=== PATIENT | female | born 2000 | race Caucasian/White ===

== ENCOUNTER 2019-06-20 08:57 | Emergency (ER) | payer OTHER, SELFPAY ==
[2019-06-20 09:07] VITALS: BP 119/76; PULSE 88; RESP 18; TEMP 36.3; O2SAT 100
--- NOTE | 2019-06-20 09:49 | ED.GENADULT ---
HPI - General Adult General Chief complaint: Urogenital-Female Stated complaint: UTI Time Seen by Provider: 06/20/19 09:45 Source: patient and RN notes reviewed Mode of arrival: ambulatory Limitations: no limitations History of Present Illness HPI narrative: 18-year-old female presents with urinary complaints for 1 day. Dysuria consist of frequency and urgency.? No treatment.? Denies fever or chills. No significant pelvic pain. No vaginal discharge.? No concerns for STDs. Exacerbating factors urinating.? Denies hematuria or vaginal bleeding. Denies douching. Denies being , LMP 1-2 weeks ago and on control. No flank pain. Denies nausea, vomiting, and abdominal pain.? Tolerating liquids well.? Remains active. Some parts of this dictation were generated by voice recognition software and may contain typographical and/or grammatical inaccuracies. Related Data Home Medications Medication Instructions Recorded Confirmed fluticasone propionate 50 1 - 2 spray NASAL DAILY ml 05/28/19 06/20/19 mcg/actuation nasal spray,suspension norgestrel 0.3 mg-ethinyl 1 tablet PO DAILY 05/28/19 06/20/19 estradiol 30 mcg tablet cetirizine 10 mg tablet 10 mg PO DAILY 05/29/19 06/20/19 Allergies Allergy/AdvReac Type Severity Reaction Status Date / Time No Known Allergies Allergy Verified 06/20/19 09:55 Review of Systems Review of Systems: Narrative: CONSTITUTIONAL: Denies fever, chills, sweats. EYES: Denies visual changes, redness, discharge. ENT: Denies rhinorrhea, congestion, sore throat, otalgia. CARDIOVASCULAR: Denies chest pain, palpitations, edema. RESPIRATORY: Denies dyspnea, wheezing, cough. GASTROINTESTINAL: Denies abdominal pain, nausea, vomiting, diarrhea. GENITOURINARY: Complains of dysuria (frequency and urgency). Denies hematuria, abnormal discharge. SKIN: Denies rash or itching. MUSCULOSKELETAL: Denies acute back pain, joint pain, or myalgia. NEUROLOGIC: Denies numbness or focal weakness. PSYCHIATRIC: Denies anxiety or depression. All systems reviewed & are unremarkable except as noted in HPI and below. [facility] Past Medical History Medical History (Updated 06/21/19 @ 00:00 by Background Daemon) Rheumatic fever with heart involvement Surgical History Surgical History (Updated 06/20/19 @ 10:12 by SINDY Gonzales) No significant past surgical history Family History Family History Mother Patient's mother is in good health Father Patient's father is in good health Social History Social History (Updated 06/20/19 @ 10:12 by SINDY Gonzales) Smoking status: Never smoker Second hand tobacco smoke exposure: No Alcohol intake: current Alcohol use details: Occasional Substance use: never Living arrangements: with family Occupation/Education: student Gender identity (if verbalized by the patient): Female Comments At time of signature, agree with nurse past medical, surgical, social, and family history.? There is no relevant family history pertinent to the presenting complaint. Exam Narrative: Exam Narrative: GENERAL: This is a well-nourished, well-developed patient, in no apparent distress.? Talks in full sentences and ambulates with steady gait without dyspnea. HEAD: normocephalic, atraumatic. EYES: PERRL. Sclera clear/white. Vision is grossly intact. CARDIOVASCULAR: Regular rate and rhythm without murmurs, gallops, or rubs. RESPIRATORY: Clear to auscultation. Breath sounds equal bilaterally. No wheezes, rales, or rhonchi.? GASTROINTESTINAL: Abdomen soft, no significant abdominal tenderness, nondistended. Bowel sounds are active. No hepato-splenomegaly, or palpable masses. No guarding. SKIN: warm, intact with no suspicious lesions or rash, No Purpura or Ecchymosis, good texture and turgor. NEURO: awake, alert, and oriented to person, place and time. There were no obvious focal neurologic abnormalit
== END 2019-06-20 10:02 | disposition home or self-care (01) ==
PROVIDERS: Emergency Provider Nurse Practitioner Family; PCP Emergency Medicine
DX: R30.0 Dysuria (principal)
CPT/HCPCS: 81003; 99213; G0463

== ENCOUNTER 2019-09-14 10:52 | Outpatient (CLI) | payer OTHER, SELFPAY ==
[2019-09-14 11:40] LABS: Basophils Percent Auto 0.7 % (0.2-1.2); Eosinophils Absolute Auto 0.1 K/mm3 (0-0.3); Eosinophils Percent Auto 2.1 % (0-4.4); Hematocrit 39.9 % (37.0-47.0); Immature Granulocyte Absolute 0.01 K/mm3 (0.00-0.031); Immature Granulocyte Percent A 0.2 % (0-0.5); Lymphocytes Percent Auto 37.7 % (18.3-44.2); Mean Corpuscular HGB Conc 32.6 g/dl (32-36); Mean Corpuscular Hemoglobin 30.2 pg (26-34); Mean Corpuscular Volume 92.8 fl (80-100); Mean Platelet Volume 9.4 fl (7.4-10.4); Monocytes Absolute Auto 0.4 K/mm3 (0.1-0.6); Monocytes Percent Auto 5.7 % (2.6-8.5); Neutrophils Absolute Auto 3.3 K/mm3 (1.3-6.7); Neutrophils Percent Auto 53.6 % (45.5-73.1); Platelet Count Result 261 k/mm3 (150-375); Red Cell Distribution Width 11.8 % (11.5-14.5); White Blood Count 6.1 K/mm3 (4.5-10.0)
[2019-09-14 11:55] LABS: Alanine Aminotransferase 27 U/L (4-35); Albumin Level 4.4 g/dL (3.5-5.1); Alkaline Phosphatase 58 U/L (38-126); Aspartate Amino Transferase 29 U/L (14-36); Bilirubin,Total 0.4 mg/dL (0.2-1.3); Blood Urea Nitrogen 9 mg/dL (7-17); Calcium 9.3 mg/dL (8.4-10.2); Carbon Dioxide 23 mmol/L (22-30); Chloride 106 mmol/L (98-107); Cholesterol 195 mg/dL (0-200); Estimated Glomerular Filt Rate > 60; Glucose 85 mg/dL (65-105); HDL Direct 71 mg/dL; Potassium 4.1 mmol/L (3.4-5.0); Sodium 137 mmol/L (137-145); Triglycerides 141 mg/dL (<150)
[2019-09-14 12:11] LABS: LDL Cholesterol Direct 99 mg/dL
== END 2019-09-14 10:53 | disposition home or self-care (01) ==
PROVIDERS: Referring Provider Physician Assistant; Visit Provider Emergency Medicine
DX: R53.83 Other fatigue (principal); R58 Hemorrhage, not elsewhere classified; Z79.899 Other long term (current) drug therapy; E78.5 Hyperlipidemia, unspecified
CPT/HCPCS: 36415; 80053; 80061; 84443; 85025

== ENCOUNTER 2020-07-21 10:21 | Outpatient (CLI) | payer OTHER, SELFPAY | END 2020-07-21 10:22 | disposition home or self-care (01) | LOC: ANHCOVIDVC 10:21 | DX: Z23 Encounter for immunization (principal) | CPT/HCPCS: 0001A; 91300 ==

== ENCOUNTER 2020-08-01 21:16 | Emergency (ER) | payer OTHER, SELFPAY ==
--- NOTE | ~2020-08-01 | XR_ITS ---
XR foot RT min 3V 08/01/2020 21:42 Indication: Dorsal right foot pain Procedure: 4 views right foot Comparison: No prior studies for comparison. Findings: Normal anatomic alignment. No fracture or traumatic malalignment. No focal soft tissue abno rmality. No foreign bodies. Lisfranc joint intact. Impression: 1: No acute fracture. Reviewed, dictated and finalized at location A. Impression: 1: No acute fracture.
[2020-08-01 21:22] VITALS: BP 113/75; PULSE 109; RESP 18; TEMP 36.2; O2SAT 99
[2020-08-02 00:10] VITALS: PULSE 81; RESP 18; O2SAT 99
--- NOTE | 2020-08-02 00:11 | ED.GENADULT ---
HPI - General Adult General Chief complaint: Extremity Injury, Lower <EILEEN Ordonez Last Filed: 08/02/20 00:13> Stated complaint: right foot pain <EILEEN Ordonez Last Filed: 08/02/20 00:13> Time Seen by Provider: 08/01/20 22:24 <EILEEN Ordonez Last Filed: 08/02/20 00:13> Source: patient and family <EILEEN Ordonez Last Filed: 08/02/20 00:13> Mode of arrival: ambulatory <EILEEN Ordonez Last Filed: 08/02/20 00:13> Limitations: no limitations <EILEEN Ordonez Last Filed: 08/02/20 00:13> History of Present Illness HPI narrative: Patient is a 19-year-old female who presents with right midfoot injury noting that she was playing volleyball when she felt several pops in the foot and has since had bruising and tenderness of the right midfoot patient denies other injuries or complaints does note pain with bearing weight patient denies similar occurrence in the past patient otherwise on arrival is in no distress resting comfortably in the room presents with her mother <EILEEN Ordonez Last Filed: 08/02/20 00:13> Related Data Home medications: Home Medications Medication Instructions Recorded Confirmed fluticasone propionate 50 1 - 2 spray NASAL DAILY ml 05/28/19 06/20/19 mcg/actuation nasal spray,suspension norgestrel 0.3 mg-ethinyl 1 tablet PO DAILY 05/28/19 06/20/19 estradiol 30 mcg tablet cetirizine 10 mg tablet 10 mg PO DAILY 05/29/19 06/20/19 <EILEEN Ordonez Last Filed: 08/02/20 00:13> Allergies/adverse reactions: Allergies Allergy/AdvReac Type Severity Reaction Status Date / Time No Known Allergies Allergy Verified 06/20/19 09:55 <EILEEN Ordonez Last Filed: 08/02/20 00:13> Review of Systems Review of Systems: All systems reviewed & are unremarkable except as noted in HPI and below <EILEEN Ordonez Last Filed: 08/02/20 00:13> [facility] Past Medical History Medical History: Medical History Rheumatic fever with heart involvement <Chris Waldron PA-C - Last Filed: 08/02/20 00:13> Surgical History Surgical History: Surgical History No significant past surgical history <Chris Waldron PA-C - Last Filed: 08/02/20 00:13> Family History Family History: Family History Mother Patient's mother is in good health Father Patient's father is in good health <Chris Waldron PA-C - Last Filed: 08/02/20 00:13> Social History Social History: Social History Smoking status: Never smoker Second hand tobacco smoke exposure: No Alcohol intake: current Substance use: never Gender identity (if verbalized by the patient): Female <Chris Waldron PA-C - Last Filed: 08/02/20 00:13> Exam Narrative: Exam Narrative: GENERAL: Well-appearing, well-nourished, and in no acute distress. HEAD: Normocephalic, atraumatic. EYES: PERRLA and EOMI. ENT: Nares clear, no rhinorrhea or epistaxis. Mucous membranes moist. CHEST: Clear to auscultation. No respiratory distress. No wheezes rales or rhonchi HEART: Regular rate and rhythm. No murmur heard. Normal peripheral pulses. EXTREMITIES: Normal range of motion. No edema. Tenderness of the right lateral midfoot with slight swelling SKIN: Warm, dry, no rash. NEURO: No focal deficits. Alert and oriented x3. Neurovascularly intact PSYCH: Normal mood and affect. <Chris Waldron PA-C - Last Filed: 08/02/20 00:13> Course Course Emergency Course: Patient in the room negative radiographs will be discharged with Dagoberto wrap and crutches with primary care follow-up <Chris Waldron PA-C - Last Filed: 08/02/20 00:13> Vital Signs Vital signs: Vital Signs
--- NOTE | 2020-08-02 01:24 | PC.NURSE ---
pt provided with juanito wrap and crutches/crutch training. cms intact to right foot after application of juanito wrap. pt exited ED c mother. no s/s of acute distress.
== END 2020-08-02 01:00 | disposition home or self-care (01) ==
LOC: ANHED 08-02 00:26
PROVIDERS: Emergency Provider General Practice; PCP Emergency Medicine
DX: S93.401A Sprain of unspecified ligament of right ankle, initial encounter (principal); X50.9XXA Other and unspecified overexertion or strenuous movements or postures, initial encounter; Y93.68 Activity, volleyball (beach) (court)
CPT/HCPCS: 73630; 99283

== ENCOUNTER 2020-08-16 10:50 | Outpatient (CLI) | payer OTHER, SELFPAY | END 2020-08-16 10:51 | disposition home or self-care (01) | LOC: ANHCOVIDVC 10:50 | PROVIDERS: PCP Emergency Medicine | DX: Z23 Encounter for immunization (principal) | CPT/HCPCS: 0002A; 91300 ==

== ENCOUNTER 2020-09-22 07:04 | Outpatient (CLI) | payer OTHER, SELFPAY ==
[2020-09-22 08:03] LABS: Cholesterol 183 mg/dL (0-200); HDL Direct 64 mg/dL; Triglycerides 152 mg/dL (<150)
[2020-09-22 08:12] LABS: Add Urine Microscopic? YES; Appearance Urine Cloudy (Clear); Bacteria Urine 4+ /hpf; Bilirubin Urine Negative (Negative); Blood Urine 1+ (Negative); Color Urine Yellow (Yellow); Glucose Urine UA Negative (Negative); Ketones Urine Negative (Negative); Leukocyte Esterase Ur 3+ LEU/UL (NEGATIVE); Nitrate Urine Negative (Negative); Protein Urine 1+ mg/dL (Negative); Specific Grav Ur 1.017 (1.001-1.035); Squamous Epithelial Cell Urine Many /hpf (Few); Urobilinogen Urine Negative mg/dL (<2.0)
[2020-09-22 08:15] LABS: LDL Cholesterol Direct 94 mg/dL
[2020-09-22 08:17] LABS: Iron 160 ug/dL (37-170)
[2020-09-22 08:35] LABS: Free T4 Free Thyroxine 0.95 ng/mL (0.78-2.19)
== END 2020-09-22 07:05 | disposition home or self-care (01) ==
LOC: ANHLAB 07:10
PROVIDERS: PCP Emergency Medicine; Visit Provider Physician Assistant
DX: Z51.81 Encounter for therapeutic drug level monitoring (principal); Z79.899 Other long term (current) drug therapy; E16.2 Hypoglycemia, unspecified; Z13.220 Encounter for screening for lipoid disorders
CPT/HCPCS: 36415; 80061; 81001; 83036; 83540; 84439; 84443

== ENCOUNTER 2020-10-05 08:06 | Outpatient (CLI) | payer OTHER, SELFPAY ==
[2020-10-05 09:07] LABS: Basophils Absolute Auto 0.1 K/mm3 (0.0-0.1); Basophils Percent Auto 0.7 % (0.2-1.2); Eosinophils Absolute Auto 0.1 K/mm3 (0-0.3); Eosinophils Percent Auto 1.5 % (0-4.4); Hematocrit 40.7 % (37.0-47.0); Immature Granulocyte Absolute 0.02 K/mm3 (0.00-0.031); Immature Granulocyte Percent A 0.3 % (0-0.5); Lymphocytes Absolute Auto 2.09 K/mm3 (0.9-3.2); Lymphocytes Percent Auto 28.3 % (18.3-44.2); Mean Corpuscular HGB Conc 31.9 g/dl (32-36); Mean Corpuscular Hemoglobin 29.7 pg (26-34); Mean Corpuscular Volume 93.1 fl (80-100); Mean Platelet Volume 9.4 fl (7.4-10.4); Monocytes Absolute Auto 0.4 K/mm3 (0.1-0.6); Monocytes Percent Auto 5.4 % (2.6-8.5); Neutrophils Absolute Auto 4.7 K/mm3 (1.3-6.7); Neutrophils Percent Auto 63.8 % (45.5-73.1); Platelet Count Result 304 k/mm3 (150-375); Red Blood Count 4.37 M/mm3 (4.2-5.4); Red Cell Distribution Width 12.4 % (11.5-14.5); White Blood Count 7.4 K/mm3 (4.5-10.0)
[2020-10-05 09:09] LABS: Add Urine Microscopic? YES; Appearance Urine Cloudy (Clear); Bacteria Urine 4+ /hpf; Bilirubin Urine Negative (Negative); Blood Urine Negative (Negative); Color Urine Yellow (Yellow); Glucose Urine UA Negative (Negative); Ketones Urine Negative (Negative); Leukocyte Esterase Ur 1+ LEU/UL (Negative); Mucus Urine Rare /lpf; Nitrate Urine Negative (Negative); Protein Urine Negative (Negative); RBC Urine 0-2 /hpf (0-2); Specific Grav Ur 1.018 (1.001-1.035); Squamous Epithelial Cell Urine Many /hpf (Few); Urobilinogen Urine Negative mg/dL (<2.0)
[2020-10-05 09:09] LABS: Alanine Aminotransferase 9 U/L (4-35); Albumin Level 4.2 g/dL (3.5-5.1); Alkaline Phosphatase 48 U/L (38-126); Anion Gap 6 mmol/L (8-16); Aspartate Amino Transferase 25 U/L (14-36); Bilirubin,Total 0.5 mg/dL (0.2-1.3); Blood Urea Nitrogen 8 mg/dL (7-17); CRP 0.8 mg/dL (<1.0); Calcium 9.3 mg/dL (8.4-10.2); Carbon Dioxide 27 mmol/L (22-30); Chloride 103 mmol/L (98-107); Estimated Glomerular Filt Rate > 60; Glucose 77 mg/dL (65-105); Sodium 136 mmol/L (137-145)
[2020-10-05 09:11] LABS: Complement C3 110 mg/dL (88-165); Rheumatoid Factor < 8.6 IU/ML (<12)
[2020-10-05 11:30] LABS: Erythrocyte Sedimentation Rate 12 mm/hr (0-20)
[2020-10-07 15:16] LABS: Complement Total CH50 59 U/mL (31-60)
[2020-10-08 09:33] LABS: Chromatin Antibody <1.0; RNP Antibodies <1.0; SS-A <1.0; SS-B <1.0
[2020-10-08 09:33] LABS: Scleroderma 70 Antibody <1.0
[2020-10-08 22:14] LABS: Histone Antibody <1.0 U (<1.0)
[2020-10-09 09:24] LABS: Anti Cyclic Citrullinated Pept <16 Units (<20)
== END 2020-10-05 08:07 | disposition home or self-care (01) ==
PROVIDERS: PCP Emergency Medicine; Visit Provider Internal Medicine Rheumatology
DX: Z51.81 Encounter for therapeutic drug level monitoring (principal); Z79.899 Other long term (current) drug therapy
CPT/HCPCS: 36415; 80053; 81001; 83516; 85025; 85652; 86038; 86039; 86140; 86160; 86162; 86200; 86225; 86235; 86430

== ENCOUNTER 2022-05-15 20:01 | Emergency (ER) | payer BC, SELFPAY ==
[2022-05-15 20:06] VITALS: BP 120/91; PULSE 76; RESP 18; TEMP 36.9; O2SAT 100
--- NOTE | 2022-05-15 21:47 | ED.GIBLEED ---
HPI - GI Bleed General Chief complaint: GI Bleed Stated complaint: blood in stool Time Seen by Provider: 05/15/22 21:00 History of Present Illness HPI Narrative: 19-year-old female presents to the emergency room for evaluation of multiple episodes of bright red blood per after bowel movement. Patient states this is occurred twice, once today and once yesterday. Patient admits to spending a long periods of time on the toilet. Denies any anal trauma. Denies any rectal pain. Related Data Home Medications Medication Instructions Recorded Confirmed fluticasone propionate 50 1 - 2 spray intranasal DAILY 05/28/19 06/20/19 mcg/actuation nasal spray,suspension (Flonase Allergy Relief) norgestrel 0.3 mg-ethinyl 1 tablet PO DAILY 05/28/19 06/20/19 estradiol 30 mcg tablet (Priscillasellfederica (28)) cetirizine 10 mg tablet (Zyrtec) 10 mg PO DAILY 05/29/19 06/20/19 Allergies Allergy/AdvReac Type Severity Reaction Status Date / Time No Known Allergies Allergy Verified 06/20/19 09:55 Review of Systems Review of Systems: CONSTITUTIONAL: Denies fever, chills, or sweats. EYES: Denies visual changes, redness, or discharge. ENT: Denies rhinorrhea, congestion, sore throat, or otalgia. CARDIOVASCULAR: Denies chest pain, palpitations, or edema. RESPIRATORY: Denies cough or dyspnea. GASTROINTESTINAL: Denies abdominal pain, nausea, vomiting, or diarrhea. GENITOURINARY: Denies dysuria or hematuria. SKIN: Denies rash or itching. MUSCULOSKELETAL: Denies back pain, joint pain, or myalgia. NEUROLOGIC: Denies headache, numbness, dizziness, or weakness. PSYCHIATRIC: Denies anxiety or depression. [facility] Past Medical History Medical History Rheumatic fever with heart involvement Surgical History Surgical History No significant past surgical history Family History Family History Mother Patient's mother is in good health Father Patient's father is in good health Social History Social History Smoking status: Never smoker Second hand tobacco smoke exposure: No Alcohol intake: current Alcohol use details: Occasional Substance use: never Living arrangements: with family Occupation/Education: student Gender identity (if verbalized by the patient): Female Exam Narrative: GENERAL: Well-appearing, well-nourished, no physical limitations, and in no acute distress. HEAD: Normocephalic, atraumatic. EYES: Conjunctivae normal, PERRLA and EOMI. CHEST: Clear to auscultation. No respiratory distress. No wheezes rales or rhonchi. HEART: Regular rate and rhythm. No murmur heard. Normal peripheral pulses. ABDOMEN: Soft, nontender, nondistended, normal active bowel sounds. single hemorrhoid noted EXTREMITIES: Normal range of motion. No edema. No clubbing or cyanosis SKIN: Warm, dry, no rash. No noted wounds NEURO: No focal deficits. Alert and oriented x3. MAEW. CN's II-XI intact bilaterally, normal gait PSYCH: Cooperative. Normal mood and affect. Course Vital Signs Vital signs: Vital Signs Temperature 36.9 C 05/15/22 20:06 Pulse Rate 76 05/15/22 20:06 Respiratory Rate 18 05/15/22 20:06 Blood Pressure 120/91 H 05/15/22 20:06 Pulse Oximetry 100 05/15/22 20:06 Oxygen Delivery Room Air 05/15/22 20:06 Temperature 36.9 C 05/15/22 20:06 Pulse Rate 76 05/15/22 20:06 Respiratory Rate 18 05/15/22 20:06 Blood Pressure 120/91 H 05/15/22 20:06 Pulse Oximetry 100 05/15/22 20:06 Oxygen Delivery Room Air 05/15/22 20:06 Discharge Plan Discharge Clinical Impression: Hemorrhoids Patient Disposition: Home, Self-Care Condition: Stable Instructions: Antibiotic Form, Hemorrhoids (ED), Anal Fissure (ED) Prescriptions: New Hemorrhoidal Hygiene 50 % pads, medic
== END 2022-05-15 22:31 | disposition home or self-care (01) ==
PROVIDERS: Emergency Provider Nurse Practitioner Family; PCP Physician Assistant
DX: K64.9 Unspecified hemorrhoids (principal)
CPT/HCPCS: 99283

== ENCOUNTER 2022-12-31 18:29 | Emergency (ER) | payer BC, SELFPAY ==
--- NOTE | 2022-12-31 18:38 | ED.URI ---
HPI - URI/Sore Throat General Chief Complaint: Upper Respiratory Infection Stated Complaint: sore throat Time Seen by Provider: 12/31/22 18:38 Source: patient Mode of arrival: ambulatory Limitations: no limitations History of Present Illness HPI Narrative: Emy is a 22-year-old female patient presenting to the clinic today with complaints of a sore throat times 1-2 days. No known fever or chills. History of rheumatic fever due to undiagnosed strep infection. Related Data Home Medications Medication Instructions Recorded Confirmed L norgest/E estradiol-E estrad 1 tablet PO DAILY 12/31/22 12/31/22 0.15 mg-30 mcg (84)/10 mcg(7) tabs,3mos (Simpesse) sertraline 50 mg tablet 50 mg PO DAILY 12/31/22 12/31/22 Allergies Allergy/AdvReac Type Severity Reaction Status Date / Time No Known Allergies Allergy Verified 12/31/22 18:51 Review of Systems Review of Systems: Pertinent positives per HPI. Patient denies any fever, chills rash, headache, visual changes, dizziness, cough, runny nose, shortness of breath, chest pain, palpitations, nausea, vomiting, diarrhea, constipation, abdominal pain, or any urinary issues. PMFSH Past Medical History Medical History Rheumatic fever with heart involvement Surgical History Surgical History No significant past surgical history Family History Family History Mother Patient's mother is in good health Father Patient's father is in good health Social History Social History Smoking status: Never smoker Second hand tobacco smoke exposure: No Alcohol intake: current Alcohol use details: Occasional Substance use: never Living arrangements: with family Occupation/Education: student Gender identity (if verbalized by the patient): Female Comments At the time of my signature, I reviewed and agree with the nursing past medical, surgical, social, and family history. There is no relevant family history pertinent to the patient complaint. Exam Narrative: General: Well-developed, well nourished, in no apparent distress Head: Normocephalic, atraumatic Eyes: Pupils equally round and reactive to light bilaterally, EOM intact, sclera and conjunctive clear, no discharge, lids normal Ears: TMs intact and clear, ear canals clear, no drainage, grossly hearing normal. Nose: Nares patent, no discharge, no inflammation, no sinus tenderness. Mouth: Oropharynx without lesions or masses, good dentition, MMM. Neck: Supple, trachea midline, no enlargement of anterior or posterior cervical nodes, no thyroid masses or goiter palpable. Cardio: Regular rate and rhythm, s1 and s2 normal, no murmur appreciated. Resp: Clear to auscultation bilaterally anteriorly and posteriorly, no rhonchi, rales, wheezing or rubs Course Course Emergency Course: Portions of this record may have been created with voice recognition software. Level of Care: Express Care Visit Vital Signs Vital signs: Vital signs reviewed MDM - URI/Sore Throat MDM Narrative Medical decision making narrative: At the time of visit patient is resting comfortably on the exam table. Strep screen was obtained was negative however she does have a history of rheumatic fever due to strep. Will empirically treat with amoxicillin. Supportive measures were discussed with the patient the mother they voiced understanding discharge instructions and agreed to the treatment plan. Differential Diagnosis Differential diagnosis: Likely upper respiratory infection, otitis media, sinusitis, viral infection, bronchitis, influenza, pharyngitis and other (COVID) Discharge Plan Discharge Clinical Impression: Pharyngitis Patient Disposition: Home, Self-Care Condition: Stable Instr
[2022-12-31 18:42] VITALS: BP 125/77; PULSE 93; RESP 20; TEMP 36.7; O2SAT 99
== END 2022-12-31 19:16 | disposition home or self-care (01) ==
PROVIDERS: Emergency Provider Nurse Practitioner Family; PCP Physician Assistant
DX: J02.9 Acute pharyngitis, unspecified (principal)
CPT/HCPCS: 87081; 87880; 99213; G0463